=== PATIENT | male | born 1990 | race Caucasian/White ===

== ENCOUNTER 2020-02-06 18:49 | Emergency (ER) | payer MEDICAID ==
[~2020-02-06] VITALS: Ht 188 cm; Wt 215.0 kg
[2020-02-06] MEDS ORDERED: SODIUM CHLORIDE 0.9% 1,000 ML IV ONE (19:24)
[2020-02-06] MEDS ORDERED: ACETAMINOPHEN 325MG TABLET PO STA (19:24)
[2020-02-06] MEDS ORDERED: VANCOMYCIN 1 G PREMIX 200 ML IV ONE (19:30)
[2020-02-06] MEDS ORDERED: LIDOCAINE HCL/EPINEPHRINE 1%-EPI 1:100,000 20 ML VIAL INFIL ONE (19:45)
[2020-02-06 19:56] LABS: BASOPHILS % 0.9 % (0.0-2.0); EOSINOPHILS % 0.6 % (0.0-5.0); HEMATOCRIT. 45.8 % (42.0-52.0); LYMPHOCYTES % 23.7 % (20.0-50.0); MEAN CORPUSCULAR HEMOGLOBIN 28.7 pg (28.0-32.0); MEAN CORPUSCULAR VOLUME 87.4 fL (80.0-94.0); MEAN PLATELET VOLUME 8.5 fl (7.4-10.4); MONOCYTES % 5.4 % (2.0-8.0); NEUTROPHILS % 69.4 % (40.0-76.0); PLATELET 470 x1000/uL (130-400); RED BLOOD CELL COUNT 5.24 mill/uL (4.7-6.1); RED CELL DISTRIBUTION WIDTH 14.7 % (11.6-14.6)
[2020-02-06 20:04] LABS: CHLORIDE 99 mEq/L (98-107)
[2020-02-06 21:51] VITALS: BP 185/111
== END 2020-02-06 22:19 | disposition left against medical advice (07) ==
LOC: ER 18:49
DX: L02.212 Cutaneous abscess of back [any part, except buttock and flank] (principal); R00.0 Tachycardia, unspecified; R03.0 Elevated blood-pressure reading, without diagnosis of hypertension
CPT/HCPCS: 36415; 80053; 83605; 84145; 85025; 87040; 96365; 99284; J3370; J3490; J7030